=== PATIENT | female | born 1985 | race Caucasian/White ===

== ENCOUNTER 2018-06-13 01:26 | Emergency (ER) | payer OTHER ==
--- NOTE | 2018-06-13 01:36 | EDPHY ---
H & P Time Seen by Provider: 06/13/18 01:36 HPI/ROS: HPI CHIEF COMPLAINT: Possible allergic reaction HISTORY OF PRESENT ILLNESS: Otherwise healthy 32-year-old female presents emergency room with a possible allergic reaction. Patient states she was drinking a shake tonight around 10:00 p.m. This had hemp seeds in it. She states shortly after drinking part of the shakes she felt itchiness and throat tightness. She continued over the past few hours to continue to drink this shake. She now presents emergency room stating that she felt her throat getting tighter. No change in phonation. No vomiting, no rash, no urticaria, no chest pain. She arrives to emergency room stable vital signs. Past Medical History: Denies significant medical history Past Surgical History: Denies significant surgical history Social History: Denies drugs alcohol tobacco. Family History: Noncontributory ROS REVIEW OF SYSTEMS: 10 Systems were reviewed and negative with the exception of the elements mentioned in the history of present illness. Exam Constitutional appears well nontoxic triage nursing summary reviewed, vital signs reviewed, awake/alert. Vital signs stable Eyes normal conjunctivae and sclera, EOMI, PERRLA. HENT posterior pharynx unremarkable no swelling, no stridor, able swallow appropriately, breathing appropriately normal inspection, atraumatic, moist mucus membranes, no epistaxis, neck supple/ no meningismus, no raccoon eyes. Respiratory good air movement, clear to auscultation bilaterally, normal breath sounds, no respiratory distress, no wheezing. Cardiovascular rate normal, regular rhythm, no murmur, no edema, distal pulses normal. Gastrointestinal soft, non-tender, no rebound, no guarding, normal bowel sounds, no distension, no pulsatile mass. Genitourinary no CVA tenderness. Musculoskeletal no midline vertebral tenderness, full range of motion, no calf swelling, no tenderness of extremities, no meningismus, good pulses, neurovascularly intact. Skin pink, warm, & dry, no rash, skin atraumatic. Neurologic awake, alert and oriented x 3, AAOx3, moves all 4 extremities equally, motor intact, sensory intact, CN II-XII intact, normal cerebellar, normal vision, normal speech. Psychiatric normal mood/affect. Heme/Lymph/Immune no lymphadenopathy. Differential Diagnosis: Includes but is not limited to in a particular order allergic reaction, anaphylaxis, angioedema Medical Decision Making: Plan for this patient IV establishment IV Solu-Medrol IV Pepcid IV Benadryl. I do not feel this time she needs IM epinephrine. Continue to closely monitor. Re-evaluation: 0357: Patient re-evaluated this time. She is requesting discharge multiple times. Re-evaluation vital signs stable. No urticaria, no trouble breathing, no trouble swallowing. She states she feels fine she would like to go home. She has been monitor close to 3 hr. There has been no sign of further reaction. Will allow patient go home however return precautions discussed with the patient she understands return emergency room if develops worsening symptoms includes shortness of breath, chest pain, not doing well. Or further allergic reaction symptoms. Prescription for Benadryl, Pepcid, steroids will be provided, epi pen Source: Patient Constitutional: Initial Vital Signs Temperature (C) 36.6 C 06/13/18 01:35 Heart Rate 75 06/13/18 01:35 Respiratory Rate 18 06/13/18 01:35 Blood Pressure 124/77 H 06/13/18 01:35 O2 Sat (%) 98 06/13/18 01:35 O2 Delivery Mode Room Air Allergies/Adverse Reactions: ampicillin Allergy (Verified 06/13/18 01:40) Home Medications: Medication Instructions Recorded Clindamycin HCl 150 mg PO 06/13/18 EPINEPHrine [Epipen 0.3 MG] 0.3 mg IM ONCE #2 syr 06/13/18 Famotidine [Pepcid 20 MG (*)] 20 mg PO BID #6 tab 06/13/18 diphenhydrAMINE [Benadryl 25 MG 25 mg PO BID #6 tab 06/13/18 (*)] predniSONE 60 mg PO DAILY #9 tab 06/13/18 Medical Decision Making - Data Points Laboratory Results: Laboratory Results 06/13/18 01:50 06/13/18 01:50 06/13/18 06/13/18 01:50 01:50 WBC 5.76 10^3/uL 10^3/uL (3.80-9.50) RBC 4.07 10^6/uL L 10^6/uL (4.18-5.33) Hgb 13.4 g/dL g/dL (12.6-16.3) Hct 37.7 % L % (38.0-47.0) MCV 92.6 fL fL (81.5-99.8) MCH 32.9 pg pg (27.9-34.1) MCHC 35.5 g/dL g/dL (32.4-36.7) RDW 11.9 % % (11.5-15.2) Plt Count 221 10^3/uL 10^3/uL (150-400) MPV 10.4 fL fL (8.7-11.7) Neut % (Auto) 39.7 % % (39.3-74.2) Lymph % (Auto) 46.7 % H % (15.0-45.0) [place] % (Auto) 9.7 % % (4.5-13.0) Eos % (Auto) 3.0 % % (0.6-7.6) Baso % (Auto) 0.7 % % (0.3-1.7) Nucleat RBC Rel Count 0.0 % % (0.0-0.2) Absolute Neuts (auto) 2.29 10^3/uL 10^3/uL (1.70-6.50) Absolute Lymphs (auto) 2.69 10^3/uL 10^3/uL (1.00-3.00) Absolute Monos (auto) 0.56 10^3/uL 10^3/uL (0.30-0.80) Absolute Eos (auto) 0.17 10^3/uL 10^3/uL (0.03-0.40) Absolute Basos (auto) 0.04 10^3/uL 10^3/uL (0.02-0.10) Absolute Nucleated RBC 0.00 10^3/uL 10^3/uL (0-0.01) Immature Gran % 0.2 % % (0.0-1.1) Immature Gran # 0.01 10^3/uL 10^3/uL (0.00-0.10) Sodium 139 mEq/L mEq/L (135-145) Potassium 3.7 mEq/L mEq/L (3.5-5.2) Chloride 107 mEq/L mEq/L (97-110) Carbon Dioxide 24 mEq/l mEq/l (22-31) Anion Gap 8 mEq/L mEq/L (6-14) BUN 11 mg/dL mg/dL (7-23) Creatinine 0.7 mg/dL mg/dL (0.6-1.0) Estimated GFR > 60 Glucose 92 mg/dL mg/dL (70-100) Calcium 9.0 mg/dL mg/dL (8.5-10.4) Medications Given: Discontinued Medications Diphenhydramine HCl (Benadryl Injection) 25 mg IVP EDNOW ONE Stop: 06/13/18 01:53 Last Admin: 06/13/18 02:03 Dose: 25 mg Famotidine (Pepcid) 20 mg IVP EDNOW ONE Stop: 06/13/18 01:53 Last Admin: 06/13/18 02:07 Dose: 20 mg Sodium Chloride (Ns) 1,000 mls @ 0 mls/hr IV EDNOW ONE; Wide Open PRN Reason: Protocol Stop: 06/13/18 01:53 Last Admin: 06/13/18 02:02 Dose: 1,000 mls Methylprednisolone Sodium Succinate (Solu-Medrol) 125 mg IVP EDNOW ONE Stop: 06/13/18 01:53 Last Admin: 06/13/18 02:06 Dose: 125 mg Departure - Departure Disposition: Home, Routine, Self-Care Clinical Impression: Allergic reaction Qualifiers: Encounter type: initial encounter Qualified Code(s): T78.40XA - Allergy, unspecified, initial encounter Condition: Good Instructions: Food Allergy (ED), Allergies (ED) Additional Instructions: 1. Return to the emergency room if you have worsening symptoms. 2. Follow up with your primary care doctor Referrals: NONE *PRIMARY CARE P,. [Primary Care Provider] - As per Instructions Prescriptions: diphenhydrAMINE [Benadryl 25 MG (*)] 25 mg PO BID #6 tab EPINEPHrine [Epipen 0.3 MG] 0.3 mg IM ONCE #2 syr Famotidine [Pepcid 20 MG (*)] 20 mg PO BID #6 tab predniSONE 60 mg PO DAILY #9 tab
[2018-06-13] MEDS ORDERED: NS 1,000 ML IV ONE (01:52)
[2018-06-13] MEDS ORDERED: FAMOTIDINE 20 MG/2 ML SDV IVP ONE (01:52)
[2018-06-13] MEDS ORDERED: methylPREDNISolone SOD SUCC 125 MG/2 ML VIAL IVP ONE (01:52)
[2018-06-13 02:00] LABS: PLATELET COUNT 221 10^3/uL (150-400)
[2018-06-13 04:16] VITALS: BP 106/67
== END 2018-06-13 04:07 | disposition home or self-care (01) ==
DX: T78.40XA Allergy, unspecified, initial encounter (principal); E86.9 Volume depletion, unspecified
CPT/HCPCS: 96374; J1200; J2930